=== PATIENT | male | born 1935 | race Caucasian/White ===

== ENCOUNTER 2016-03-28 05:25 | Inpatient (IN) | payer OTHER ==
[~2016-03-28] VITALS: Ht 193 cm; Wt 105.0 kg
[~2016-03-28 05:25] MED LIST: ECOTRIN325 MG PO; HYDROCHLOROTHIA25 MG PO; LIPITOR40 MG PO; LISINOPRIL20 MG PO; LORCET 5-325 M1 EACH PO; PROSCAR5 MG PO; TOPROL XL50 MG PO; TRAMADOL HCL50 MG PO; TYLENOL ARTHRI650 MG PO; VITAMIN B12 PO; ZESTRIL20 MG PO; ZOFRAN4 MG PO
[2016-03-28 06:55] VITALS: BP 163/77
[2016-03-28 13:51] VITALS: BP 158/89
[2016-03-28 15:20] VITALS: BP 145/64
[2016-03-28 16:30] VITALS: BP 130/78
[2016-03-28 19:39] VITALS: BP 161/88
[2016-03-28 23:46] VITALS: BP 142/74
[2016-03-29 03:09] VITALS: BP 168/74
[2016-03-29 07:30] VITALS: BP 141/95
[2016-03-29 10:55] VITALS: BP 170/79
[2016-03-29] MEDS ORDERED: TIZANIDINE HCL4 MG PO (11:23)
[2016-03-29] MEDS ORDERED: DIAZEPAM5 MG PO (11:24)
[2016-03-29] MEDS ORDERED: SENNA LAXATIVE25 MG PO (14:21)
[2016-03-29] MEDS ORDERED: TYLENOL REGULA325 MG PO (14:22)
[2016-03-29] MEDS ORDERED: ZOFRAN4 MG IV (14:24)
[2016-03-29] MEDS ORDERED: DULCOLAX5 MG PO (14:25)
== END 2016-03-29 13:20 | DRG 520 ==
LOC: SDC 05:25 → 2SOUTH 10:34 → SDC 11:00 → 2SOUTH 11:01 → EDSTATUS 11:07 → SDC 11:27 → 2EASTP 12:43
PROC: 00NY0ZZ Release Lumbar Spinal Cord, Open Approach (ICD-10-PCS; principal; 2016-03-28)
DX: M48.06 Spinal stenosis, lumbar region (principal); G96.8 Other specified disorders of central nervous system; M51.36 Other intervertebral disc degeneration, lumbar region; M43.10 Spondylolisthesis, site unspecified; R26.81 Unsteadiness on feet; M62.81 Muscle weakness (generalized)
CPT/HCPCS: 72020; 76000; J0131; J0690; J1100; J1170; J2405; J2710; J2930; J3370; J3480; S0020

== ENCOUNTER 2016-03-29 12:08 | Inpatient (IN) | payer OTHER ==
[~2016-03-29] VITALS: Ht 175.3 cm; Wt 90.2 kg
[~2016-03-29 12:08] MED LIST changes: +DIAZEPAM5 MG PO; +TIZANIDINE HCL4 MG PO
[2016-03-29 13:55] VITALS: BP 131/63
[2016-03-29] MEDS ORDERED: SENNA LAXATIVE25 MG PO (14:21)
[2016-03-29] MEDS ORDERED: TYLENOL REGULA325 MG PO (14:22)
[2016-03-29] MEDS ORDERED: ZOFRAN4 MG IV (14:24)
[2016-03-29] MEDS ORDERED: DULCOLAX5 MG PO (14:25)
[2016-03-29 15:28] VITALS: BP 133/68
[2016-03-29 17:50] LABS: HEMATOCRIT 44.2 % (38.0-50.0); MCH 30.3 PG (29.0-34.0); MCHC 31.9 G/DL (30.0-36.0); MCV 94.8 FL (86-99); MEAN PLAT.VOLUME 10.7 uM^3 (9.0-12.4); PLATELET COUNT 121 K/uL (156-360); RBC DIS.WIDTH-CV 13.8 % (11.8-14.6); RBC DIS.WIDTH-SD 47.5 % (39-53); RED BLOOD COUNT 4.66 M/uL (4.00-5.50)
[2016-03-29 18:08] LABS: WHITE BLOOD COUNT 11.8 K/uL (4.1-10.2)
[2016-03-29 18:20] LABS: ANION GAP 7 MEQ/L (2-14); CHLORIDE 101 MEQ/L (99-109); GFR ESTIMATE (CALCULATED) > 59 mL/min/; GLUCOSE 96 mg/dL (70-99); POTASSIUM 4.1 MEQ/L (3.7-5.4); SAMPLE HEMOLYSIS CHECK 0; SAMPLE ICTERIC CHECK 0; SAMPLE LIPEMIA CHECK 0; SODIUM 136 MEQ/L (136-147); UREA NITROGEN (BUN) 28 mg/dL (9-23)
[2016-03-29 18:21] LABS: ALKALINE PHOSPHATASE 71 IU/L (3-129); TOTAL BILIRUBIN 0.7 MG/DL (0.0-1.0)
[2016-03-30 00:38] VITALS: BP 131/59
[2016-03-30 05:16] VITALS: BP 179/82
[2016-03-30 07:24] VITALS: BP 153/96
[2016-03-30 15:00] VITALS: BP 137/67
[2016-03-31 05:44] VITALS: BP 174/95
[2016-03-31 07:53] VITALS: BP 110/63
[2016-03-31 14:30] VITALS: BP 128/62
[2016-03-31 15:28] VITALS: BP 111/56
[2016-04-01 05:33] VITALS: BP 149/70
[2016-04-01 06:01] LABS: EOSINOPHIL (%) 2.2 % (0-5); EOSINOPHIL COUNT 0.1 K/uL (0-0.3); HEMATOCRIT 41.9 % (38.0-50.0); IMMATURE GRANULOCYTE (%) 0.4 % (0.0-0.7); LYMPHOCYTE COUNT 1.4 K/uL (1.0-2.8); MCH 32.6 PG (29.0-34.0); MCHC 34.4 G/DL (30.0-36.0); MCV 94.8 FL (86-99); MEAN PLAT.VOLUME 11.3 uM^3 (9.0-12.4); MONOCYTE (%) 10.6 % (3-12); MONOCYTE COUNT 0.6 K/uL (0-0.8); NEUTROPHIL (%) 60.9 % (45-76); NEUTROPHIL COUNT 3.3 K/uL (1.8-6.4); PLATELET COUNT 108 K/uL (156-360); RBC DIS.WIDTH-CV 13.5 % (11.8-14.6); RBC DIS.WIDTH-SD 47.1 % (39-53); RED BLOOD COUNT 4.42 M/uL (4.00-5.50)
[2016-04-01 06:02] LABS: WHITE BLOOD COUNT 5.4 K/uL (4.1-10.2)
[2016-04-01 06:27] LABS: ALKALINE PHOSPHATASE 78 IU/L (3-129); ANION GAP 11 MEQ/L (2-14); CHLORIDE 100 MEQ/L (99-109); GFR ESTIMATE (CALCULATED) > 59 mL/min/; GLUCOSE 113 mg/dL (70-99); POTASSIUM 3.9 MEQ/L (3.7-5.4); SAMPLE HEMOLYSIS CHECK 0; SAMPLE ICTERIC CHECK 0; SAMPLE LIPEMIA CHECK 0; SODIUM 135 MEQ/L (136-147); UREA NITROGEN (BUN) 33 mg/dL (9-23)
[2016-04-01 16:26] VITALS: BP 122/59
[2016-04-02 05:02] VITALS: BP 131/64
[2016-04-02 15:40] VITALS: BP 131/58
[2016-04-03 05:54] VITALS: BP 133/67
[2016-04-03 15:56] VITALS: BP 143/74
[2016-04-04 05:53] VITALS: BP 147/67
[2016-04-04] MEDS ORDERED: LORCET 5-325 M1 EACH PO (11:54)
[2016-04-04] MEDS ORDERED: SENNA PLUS TAB1 EACH PO (11:54)
== END 2016-04-04 14:54 | DRG 946 ==
LOC: 3WEST 12:08
PROVIDERS: Psychiatry & Neurology Neurology
PROC: F07M0ZZ Range of Motion and Joint Mobility Treatment of Musculoskeletal System - Whole Body (ICD-10-PCS; principal; 2016-03-29)
DX: R53.1 Weakness (principal); M48.06 Spinal stenosis, lumbar region; G89.18 Other acute postprocedural pain; G62.9 Polyneuropathy, unspecified; D69.6 Thrombocytopenia, unspecified; I10 Essential (primary) hypertension; M17.11 Unilateral primary osteoarthritis, right knee; E78.5 Hyperlipidemia, unspecified; I25.10 Atherosclerotic heart disease of native coronary artery without angina pectoris; I70.213 Atherosclerosis of native arteries of extremities with intermittent claudication, bilateral legs; Z96.642 Presence of left artificial hip joint; M16.12 Unilateral primary osteoarthritis, left hip; Z90.49 Acquired absence of other specified parts of digestive tract; Z95.5 Presence of coronary angioplasty implant and graft; Z96.651 Presence of right artificial knee joint
CPT/HCPCS: 80053; 85025; 85027; 93005; 97110 GO; 97530 GP